=== PATIENT | female | born 1940 | race Asian ===

== ENCOUNTER 2019-03-30 04:49 | Inpatient (IN) | payer MEDICARE, OTHER, MEDICAID ==
[~2019-03-30] VITALS: Ht 165.1 cm; Wt 78.0 kg
[2019-03-30] MEDS ORDERED: METO25XL PO (05:05)
[2019-03-30] MEDS ORDERED: DABI75CA3 PO (05:05)
[2019-03-30] MEDS ORDERED: IPRA3AMP23 NEB (05:05)
[2019-03-30] MEDS ORDERED: LEVO100 PO (05:05)
[2019-03-30] MEDS ORDERED: ATOR10TA84 PO (05:05)
[2019-03-30] MEDS ORDERED: PROZ10 PO (05:05)
[2019-03-30] MEDS ORDERED: INSLAN SQ (05:05)
[2019-03-30 05:10] LABS: GLUCOSE,POINT OF CARE 420 MG/DL (70-110)
[2019-03-30] MEDS ORDERED: 0.9% SODIUM CHLORIDE 10 ML SYRINGE IVP PRN ×3 (05:15→12:00)
[2019-03-30] MEDS ORDERED: SODIUM CHLORIDE 0.9% 500 ML IV ONE (05:15)
[2019-03-30 05:40] LABS: APPEARANCE,URINE CLOUDY (CLEAR); BILIRUBIN,URINE NEGATIVE (NEGATIVE); GLUCOSE, URINE (UA) >=1000 mg/dL (NEGATIVE); KETONES,URINE NEGATIVE (NEGATIVE); LEUKOCYTE ESTERASE ,URINE SMALL (NEGATIVE); NITRATE,URINE NEGATIVE (NEGATIVE); OCCULT BLOOD,URINE TRACE (NEGATIVE); PH,URINE 5.5 (5.0-8.0); PROTEIN,URINE SEE CONFIRM (NEGATIVE); UROBILINOGEN,URINE 0.2 mg/dL (<=1.0)
[2019-03-30 05:41] LABS: BASOPHILS % (AUTO) 0.6 % (0.0-2.0); EOSINOPHILS % (AUTO) 0.2 % (1.0-6.0); HEMATOCRIT 38.5 % (36-46); HEMOGLOBIN 11.5 g/dL (12.0-16.0); LYMPHOCYTES # (AUTO) 1.2 K/uL (1.0-4.8); LYMPHOCYTES % (AUTO) 9.8 % (22.0-44.0); MEAN CORPUSCULAR VOLUME 73 fL (80-100); MONOCYTES # (AUTO) 0.6 K/uL (0.1-1.0); NEUTROPHILS # (AUTO) 10.4 K/uL (1.8-7.7); NEUTROPHILS % (AUTO) 84.4 % (40.0-70.0); PLATELET COUNT (AUTO) 199 K/uL (150-450); RED BLOOD CELL COUNT(AUTO) 5.24 MIL/uL (4.00-5.20); RED CELL DISTRIBUTION WIDTH 15.2 % (11.5-14.5)
[2019-03-30] MEDS ORDERED: PIPERACILLIN/TAZO 3.375 GM/D5W 50 ML IV ONE (05:45)
[2019-03-30] MEDS ORDERED: VANCOMYCIN HCL 1.5 GM in DEXTROSE 5%-WATER 250 ML IV ONE (05:45)
[2019-03-30 05:46] LABS: INR 1.3 (0.9-1.1); PROTHROMBIN TIME 13.7 SEC (9.4-11.6)
[2019-03-30 05:58] LABS: ANION GAP 7 mmol/L (8-16); CARBON DIOXIDE 28 mmol/L (22-29); CHLORIDE 103 mmol/L (98-107); POTASSIUM 3.8 mmol/L (3.5-5.1); SODIUM SERUM 138 mmol/L (136-145)
[2019-03-30 06:01] LABS: CREATININE 1.72 mg/dL (0.60-1.30); GLUCOSE,RANDOM 434 mg/dL (70-110); UREA NITROGEN, BLOOD 17 mg/dL (7-18)
[2019-03-30 06:02] LABS: ALANINE AMINOTRANSFERASE 8 U/L (12-78); ALBUMIN 2.6 g/dL (3.4-5.0); ALKALINE PHOSPHATASE 52 U/L (46-116); ASPARTATE AMINOTRANSFERASE 10 U/L (15-37); B-TYPE NATRIURETIC PEPTIDE 207 pg/mL (0-100); BILIRUBIN,TOTAL 0.4 mg/dL (0.1-1.0); CALCIUM, TOTAL 8.4 mg/dL (8.8-10.5); LACTIC ACID 3.2 mmol/L (0.4-2.0); TOTAL PROTEIN, SERUM 6.6 g/dL (6.4-8.2)
[2019-03-30 06:17] LABS: SULFOSALICYLIC ACID,URINE 2+ (Negative)
[2019-03-30 06:18] LABS: BACTERIA,URINE Many /HPF (None Seen); SQUAMOUS EPITHELIAL CELL,UR Few /LPF (None Seen)
[2019-03-30 06:23] LABS: PLATELET MORPHOLOGY COMMENT LARGE PLTS PRESENT
[2019-03-30] MEDS ORDERED: SODIUM CHLORIDE 0.9% 2,300 ML IV ONE (07:14)
[2019-03-30] MEDS ORDERED: ACETAMINOPHEN 325 MG TABLET PO PRN (07:15)
[2019-03-30] MEDS ORDERED: INSULIN REGULAR, HUMAN 100 UNITS/ML IVP ONE (07:30)
[2019-03-30 07:39] LABS: INFLUENZA TYPE A NEGATIVE FOR TYPE A (NEGATIVE); INFLUENZA TYPE B NEGATIVE FOR TYPE B (NEGATIVE)
[2019-03-30 10:26] VITALS: BP 117/64
[2019-03-30] MEDS ORDERED: SODIUM CHLORIDE 0.9% 250 ML IV ONE (10:33)
[2019-03-30] MEDS: CefTRIAXone SODIUM 2 GM in DEXTROSE 5%-WATER 50 ML IV SCH (11:23)
[2019-03-30] MEDS ORDERED: GLUCAGON,HUMAN RECOMBINANT 1 MG VIAL IM PRN (11:45)
[2019-03-30] MEDS ORDERED: INSULIN LISPRO 100 UNITS/ML SQ PRN (11:45)
[2019-03-30] MEDS ORDERED: DEXTROSE 50%-WATER 25 GM/50 ML SYRINGE IVP PRN (12:00)
[2019-03-30] MEDS ORDERED: IPRATROPIUM BROMIDE 0.5 MG/2.5 ML NEB SOLUTION NEB PRN (12:00)
[2019-03-30] MEDS ORDERED: ALBUTEROL SULFATE 2.5 MG/0.5 ML NEB SOLUTION NEB PRN (12:00)
[2019-03-30] MEDS ORDERED: DABIGATRAN ETEXILATE MESYLATE 75 MG CAPSULE PO SCH (12:00)
[2019-03-30] MEDS ORDERED: ONDANSETRON HCL 4 MG/2 ML VIAL IVP PRN (12:00)
[2019-03-30] MEDS ORDERED: DABI150 PO (12:00)
[2019-03-30] MEDS ORDERED: CefTRIAXone 1 GM/DEXTROSE 50 ML IV SCH (12:00)
[2019-03-30] MEDS ORDERED: MORPHINE SULFATE 2 MG/ML SYRINGE IVP PRN (12:00)
[2019-03-30] MEDS: DOXYCYCLINE HYCLATE 100 MG in DEXTROSE 5%-WATER 100 ML IV SCH (12:26)
[2019-03-30] MEDS: INSULIN LISPRO 100 UNITS/ML SQ PRN ×3 (12:32→21:45)
[2019-03-30 12:39] LABS: HEMOGLOBIN A1C 10.1 % (4.5-6.2)
[2019-03-30 12:42] LABS: CHOL/HDL RATIO 4.4 (3.9-5.7); THYROID STIMULATING HORMONE 8.25 uIU/mL (0.36-3.74)
[2019-03-30] MEDS: MetroNIDAZOLE 500 MG/NACL 100 ML IV SCH ×2 (15:12→22:23)
[2019-03-30] MEDS: DABIGATRAN ETEXILATE MESYLATE 150 MG CAPSULE PO SCH ×2 (15:12→21:26)
[2019-03-30] MEDS: FLUoxetine HCL 10 MG CAPSULE PO SCH (15:12)
[2019-03-30] MEDS: METOPROLOL SUCCINATE 25 MG ER TABLET PO SCH (15:13)
[2019-03-30] MEDS: LEVOTHYROXINE SODIUM 100 MCG TABLET PO SCH (15:13)
[2019-03-30] MEDS: PANTOPRAZOLE SODIUM 40 MG DR TABLET PO SCH (15:13)
[2019-03-30 15:14] VITALS: BP 118/40
[2019-03-30 16:05] LABS: GLUCOMETER DEV NAME(LOC) 5S.1; GLUCOSE,POINT OF CARE 327 MG/DL (70-110)
[2019-03-30] MEDS ORDERED: SODIUM CHLORIDE 3% 15 ML NEB SOLUTION NEB ONE (16:52)
[2019-03-30] MEDS ORDERED: GuaiFENesin/D-METHORPHAN [SUGAR-FREE] 200-20MG/10 ML SYRUP UDCUP PO PRN (18:30)
[2019-03-30 20:03] VITALS: BP 131/72
[2019-03-30 20:06] LABS: GLUCOMETER DEV NAME(LOC) 5S.1; GLUCOSE,POINT OF CARE 251 MG/DL (70-110)
[2019-03-30] MEDS ORDERED: INSULIN GLARGINE,HUM.REC.ANLOG 100 UNITS/ML SQ SCH (21:00)
[2019-03-30] MEDS: ATORVASTATIN CALCIUM 20 MG TABLET PO SCH (21:26)
[2019-03-31] MEDS: DOXYCYCLINE HYCLATE 100 MG in DEXTROSE 5%-WATER 100 ML IV SCH ×2 (00:04→11:50)
[2019-03-31 00:19] VITALS: BP 146/84
[2019-03-31 04:22] VITALS: BP 140/64
[2019-03-31] MEDS: MetroNIDAZOLE 500 MG/NACL 100 ML IV SCH ×3 (05:51→21:53)
[2019-03-31] MEDS: PANTOPRAZOLE SODIUM 40 MG DR TABLET PO SCH (05:52)
[2019-03-31] MEDS: LEVOTHYROXINE SODIUM 100 MCG TABLET PO SCH (05:52)
[2019-03-31 06:06] LABS: BASOPHILS % (AUTO) 0.6 % (0.0-2.0); EOSINOPHILS % (AUTO) 1.4 % (1.0-6.0); HEMATOCRIT 37.4 % (36-46); HEMOGLOBIN 11.6 g/dL (12.0-16.0); LYMPHOCYTES # (AUTO) 1.6 K/uL (1.0-4.8); LYMPHOCYTES % (AUTO) 15.4 % (22.0-44.0); MEAN CORPUSCULAR HEMOGLOBIN 22.9 pg (26.0-34.0); MEAN CORPUSCULAR VOLUME 74 fL (80-100); MONOCYTES # (AUTO) 0.5 K/uL (0.1-1.0); MONOCYTES % (AUTO) 4.8 % (2.0-9.0); NEUTROPHILS # (AUTO) 8.1 K/uL (1.8-7.7); NEUTROPHILS % (AUTO) 77.8 % (40.0-70.0); PLATELET COUNT (AUTO) 175 K/uL (150-450); RED BLOOD CELL COUNT(AUTO) 5.08 MIL/uL (4.00-5.20); RED CELL DISTRIBUTION WIDTH 15.5 % (11.5-14.5)
[2019-03-31 06:23] LABS: CALCIUM, TOTAL 8.3 mg/dL (8.8-10.5); CHOL/HDL RATIO 3.8 (3.9-5.7); CREATININE 1.01 mg/dL (0.60-1.30); POTASSIUM 3.7 mmol/L (3.5-5.1); THYROID STIMULATING HORMONE 11.4 uIU/mL (0.36-3.74)
[2019-03-31 06:26] LABS: HEMOGLOBIN A1C 10.5 % (4.5-6.2)
[2019-03-31] MEDS: INSULIN LISPRO 100 UNITS/ML SQ PRN ×3 (06:33→17:46)
[2019-03-31 08:15] VITALS: BP 145/65
[2019-03-31] MEDS: DABIGATRAN ETEXILATE MESYLATE 150 MG CAPSULE PO SCH ×2 (08:57→21:53)
[2019-03-31] MEDS: METOPROLOL SUCCINATE 25 MG ER TABLET PO SCH (08:57)
[2019-03-31] MEDS: FLUoxetine HCL 10 MG CAPSULE PO SCH (08:57)
[2019-03-31] MEDS: CefTRIAXone SODIUM 2 GM in DEXTROSE 5%-WATER 50 ML IV SCH (09:04)
[2019-03-31 11:57] VITALS: BP 142/64
[2019-03-31 16:08] VITALS: BP 124/70
[2019-03-31] MEDS ORDERED: SODIUM CHLORIDE 3% 15 ML NEB SOLUTION NEB ONE (17:23)
[2019-03-31 19:21] LABS: GLUCOMETER DEV NAME(LOC) 5S.1; GLUCOSE,POINT OF CARE 203 MG/DL (70-110)
[2019-03-31 19:21] LABS: GLUCOMETER DEV NAME(LOC) 5S.1; GLUCOSE,POINT OF CARE 155 MG/DL (70-110)
[2019-03-31 19:21] LABS: GLUCOMETER DEV NAME(LOC) 5S.1; GLUCOSE,POINT OF CARE 197 MG/DL (70-110)
[2019-03-31 19:21] LABS: GLUCOMETER DEV NAME(LOC) 5S.1; GLUCOSE,POINT OF CARE 151 MG/DL (70-110)
[2019-03-31 20:22] VITALS: BP 107/79
[2019-03-31] MEDS: INSULIN GLARGINE,HUM.REC.ANLOG 100 UNITS/ML SQ SCH (21:00)
[2019-03-31] MEDS: ATORVASTATIN CALCIUM 20 MG TABLET PO SCH (21:53)
[2019-03-31 22:50] LABS: GLUCOMETER DEV NAME(LOC) 5S.1; GLUCOSE,POINT OF CARE 109 MG/DL (70-110)
[2019-04-01] MEDS: DOXYCYCLINE HYCLATE 100 MG in DEXTROSE 5%-WATER 100 ML IV SCH ×2 (00:52→11:00)
[2019-04-01 01:05] VITALS: BP 128/60
[2019-04-01 05:10] VITALS: BP 124/70
[2019-04-01] MEDS: MetroNIDAZOLE 500 MG/NACL 100 ML IV SCH ×2 (05:46→14:13)
[2019-04-01] MEDS: PANTOPRAZOLE SODIUM 40 MG DR TABLET PO SCH (06:33)
[2019-04-01] MEDS: LEVOTHYROXINE SODIUM 100 MCG TABLET PO SCH (06:33)
[2019-04-01] MEDS: INSULIN LISPRO 100 UNITS/ML SQ PRN ×4 (06:39→21:14)
[2019-04-01 07:11] LABS: GLUCOMETER DEV NAME(LOC) 5S.1; GLUCOSE,POINT OF CARE 193 MG/DL (70-110)
[2019-04-01 07:13] LABS: ALBUMIN 2.4 g/dL (3.4-5.0); BILIRUBIN,TOTAL 0.6 mg/dL (0.1-1.0); CALCIUM, TOTAL 8.6 mg/dL (8.8-10.5); CREATININE 1.13 mg/dL (0.60-1.30); POTASSIUM 3.5 mmol/L (3.5-5.1); TOTAL PROTEIN, SERUM 6.8 g/dL (6.4-8.2)
[2019-04-01 07:59] VITALS: BP 147/65
[2019-04-01] MEDS: METOPROLOL SUCCINATE 25 MG ER TABLET PO SCH (08:16)
[2019-04-01] MEDS: DABIGATRAN ETEXILATE MESYLATE 150 MG CAPSULE PO SCH ×2 (08:16→21:08)
[2019-04-01] MEDS: FLUoxetine HCL 10 MG CAPSULE PO SCH (08:16)
[2019-04-01] MEDS: CefTRIAXone SODIUM 2 GM in DEXTROSE 5%-WATER 50 ML IV SCH (08:18)
[2019-04-01 11:06] VITALS: BP 141/65
[2019-04-01 16:21] VITALS: BP 142/70
[2019-04-01 17:25] LABS: GLUCOMETER DEV NAME(LOC) 5S.1; GLUCOSE,POINT OF CARE 197 MG/DL (70-110)
[2019-04-01 17:26] LABS: GLUCOMETER DEV NAME(LOC) 5S.1; GLUCOSE,POINT OF CARE 188 MG/DL (70-110)
[2019-04-01 20:35] VITALS: BP 120/69
[2019-04-01 20:40] LABS: GLUCOMETER DEV NAME(LOC) 5S.1; GLUCOSE,POINT OF CARE 173 MG/DL (70-110)
[2019-04-01] MEDS: MetroNIDAZOLE 500 MG TABLET PO SCH (21:07)
[2019-04-01] MEDS: ATORVASTATIN CALCIUM 20 MG TABLET PO SCH (21:07)
[2019-04-01] MEDS: DOXYCYCLINE HYCLATE 100 MG CAPSULE PO SCH (21:07)
[2019-04-01] MEDS: INSULIN GLARGINE,HUM.REC.ANLOG 100 UNITS/ML SQ SCH (21:13)
[2019-04-02] VITALS (7 sets, daily range): BP systolic 134–152; BP diastolic 61–96
[2019-04-02] MEDS: PANTOPRAZOLE SODIUM 40 MG DR TABLET PO SCH ×2 (05:36→06:30)
[2019-04-02] MEDS: LEVOTHYROXINE SODIUM 100 MCG TABLET PO SCH ×2 (05:36→06:30)
[2019-04-02] MEDS: INSULIN LISPRO 100 UNITS/ML SQ PRN ×4 (05:50→21:56)
[2019-04-02 06:40] LABS: ALBUMIN 2.3 g/dL (3.4-5.0); BILIRUBIN,TOTAL 0.4 mg/dL (0.1-1.0); CALCIUM, TOTAL 8.4 mg/dL (8.8-10.5); CREATININE 1.09 mg/dL (0.60-1.30); POTASSIUM 3.5 mmol/L (3.5-5.1); TOTAL PROTEIN, SERUM 7.1 g/dL (6.4-8.2)
[2019-04-02] MEDS: FLUoxetine HCL 10 MG CAPSULE PO SCH (08:23)
[2019-04-02] MEDS: METOPROLOL SUCCINATE 25 MG ER TABLET PO SCH (08:23)
[2019-04-02] MEDS: DOXYCYCLINE HYCLATE 100 MG CAPSULE PO SCH ×2 (08:23→21:30)
[2019-04-02] MEDS: MetroNIDAZOLE 500 MG TABLET PO SCH ×3 (08:23→21:30)
[2019-04-02] MEDS: DABIGATRAN ETEXILATE MESYLATE 150 MG CAPSULE PO SCH ×2 (08:24→21:30)
[2019-04-02] MEDS ORDERED: SODIUM CHLORIDE 0.9% 250 ML IV ONE (10:29)
[2019-04-02 10:58] LABS: LEGIONELLA PNEUMO AG URINE Negative (Negative); ORGANISM ID Not indicated.; S PNEUMO SOURCE Urine; STREP PNEUMONIAE AG URINE Negative (Negative); STREP.PNEUMO BODY FLUID CULT. Not Indicated
[2019-04-02] MEDS: CefTRIAXone SODIUM 2 GM in DEXTROSE 5%-WATER 50 ML IV SCH (11:03)
[2019-04-02] MEDS: ATORVASTATIN CALCIUM 20 MG TABLET PO SCH (21:30)
[2019-04-02] MEDS: INSULIN GLARGINE,HUM.REC.ANLOG 100 UNITS/ML SQ SCH (21:55)
[2019-04-03 04:05] VITALS: BP 152/80
[2019-04-03] MEDS: PANTOPRAZOLE SODIUM 40 MG DR TABLET PO SCH ×3 (05:55→08:41)
[2019-04-03] MEDS: LEVOTHYROXINE SODIUM 100 MCG TABLET PO SCH ×2 (05:56→06:30)
[2019-04-03] MEDS: INSULIN LISPRO 100 UNITS/ML SQ PRN ×3 (05:58→21:47)
[2019-04-03 06:55] LABS: ALBUMIN 2.3 g/dL (3.4-5.0); BILIRUBIN,TOTAL 0.4 mg/dL (0.1-1.0); CALCIUM, TOTAL 8.4 mg/dL (8.8-10.5); CREATININE 1.13 mg/dL (0.60-1.30); TOTAL PROTEIN, SERUM 6.6 g/dL (6.4-8.2)
[2019-04-03 07:32] LABS: GLUCOMETER DEV NAME(LOC) 5N.1; GLUCOSE,POINT OF CARE 146 MG/DL (70-110)
[2019-04-03 07:32] LABS: GLUCOMETER DEV NAME(LOC) 5S.1; GLUCOSE,POINT OF CARE 163 MG/DL (70-110)
[2019-04-03 07:32] LABS: GLUCOMETER DEV NAME(LOC) 5S.1; GLUCOSE,POINT OF CARE 233 MG/DL (70-110)
[2019-04-03 07:32] LABS: GLUCOMETER DEV NAME(LOC) 5S.1; GLUCOSE,POINT OF CARE 192 MG/DL (70-110)
[2019-04-03 07:32] LABS: GLUCOMETER DEV NAME(LOC) 5N.1; GLUCOSE,POINT OF CARE 159 MG/DL (70-110)
[2019-04-03 08:00] VITALS: BP 144/75
[2019-04-03] MEDS: DABIGATRAN ETEXILATE MESYLATE 150 MG CAPSULE PO SCH ×2 (08:41→21:39)
[2019-04-03] MEDS: MetroNIDAZOLE 500 MG TABLET PO SCH ×3 (08:42→21:39)
[2019-04-03] MEDS: METOPROLOL SUCCINATE 25 MG ER TABLET PO SCH (08:42)
[2019-04-03] MEDS: DOXYCYCLINE HYCLATE 100 MG CAPSULE PO SCH ×2 (08:42→21:39)
[2019-04-03] MEDS: FLUoxetine HCL 10 MG CAPSULE PO SCH (08:45)
[2019-04-03] MEDS: CefTRIAXone SODIUM 2 GM in DEXTROSE 5%-WATER 50 ML IV SCH (09:57)
[2019-04-03 11:40] VITALS: BP 136/58
[2019-04-03] MEDS ORDERED: POTASSIUM CHLORIDE 20 MEQ ER TABLET PO PRN (12:00)
[2019-04-03] MEDS: POTASSIUM CHL 10 MEQ/WATER 50 ML IV PRN ×4 (13:40→21:40)
[2019-04-03] MEDS ORDERED: SODIUM CHLORIDE 0.9% 250 ML IV ONE (13:42)
[2019-04-03 15:19] LABS: QUANTIFERON+, Nil Value 0.02 IU/mL; QUANTIFERON+,Mitogen Value 0.22 IU/mL; QUANTIFERON+,TB1 Antigen Value 0.05 IU/mL; QUANTIFERON, TB GOLD PLUS Indeterminate (Negative)
[2019-04-03 16:00] VITALS: BP 118/79
[2019-04-03 19:38] VITALS: BP 152/62
[2019-04-03] MEDS: ATORVASTATIN CALCIUM 20 MG TABLET PO SCH (21:39)
[2019-04-03] MEDS: INSULIN GLARGINE,HUM.REC.ANLOG 100 UNITS/ML SQ SCH (21:47)
[2019-04-03 23:40] VITALS: BP 148/87
[2019-04-04] MEDS ORDERED: SODIUM CHLORIDE 0.9% 500 ML IV ONE (01:54)
[2019-04-04] MEDS: POTASSIUM CHL 10 MEQ/WATER 50 ML IV PRN ×3 (01:57→04:25)
[2019-04-04 04:18] VITALS: BP 149/88
[2019-04-04 04:31] LABS: GLUCOMETER DEV NAME(LOC) 5S.1; GLUCOSE,POINT OF CARE 206 MG/DL (70-110)
[2019-04-04 04:31] LABS: GLUCOMETER DEV NAME(LOC) 5S.1; GLUCOSE,POINT OF CARE 116 MG/DL (70-110)
[2019-04-04] MEDS: PANTOPRAZOLE SODIUM 40 MG DR TABLET PO SCH (06:18)
[2019-04-04] MEDS: LEVOTHYROXINE SODIUM 100 MCG TABLET PO SCH (06:18)
[2019-04-04 06:33] LABS: BASOPHILS % (AUTO) 0.4 % (0.0-2.0); EOSINOPHILS % (AUTO) 2.8 % (1.0-6.0); HEMATOCRIT 38.1 % (36-46); HEMOGLOBIN 12.3 g/dL (12.0-16.0); LYMPHOCYTES # (AUTO) 1.2 K/uL (1.0-4.8); LYMPHOCYTES % (AUTO) 13.2 % (22.0-44.0); MEAN CORPUSCULAR HEMOGLOBIN 23.1 pg (26.0-34.0); MEAN CORPUSCULAR HGB CONC 32.4 G/dL (31.0-37.0); MEAN CORPUSCULAR VOLUME 71 fL (80-100); MONOCYTES # (AUTO) 0.4 K/uL (0.1-1.0); MONOCYTES % (AUTO) 5.1 % (2.0-9.0); NEUTROPHILS # (AUTO) 6.9 K/uL (1.8-7.7); NEUTROPHILS % (AUTO) 78.5 % (40.0-70.0); PLATELET COUNT (AUTO) 273 K/uL (150-450); RED BLOOD CELL COUNT(AUTO) 5.33 MIL/uL (4.00-5.20); RED CELL DISTRIBUTION WIDTH 15.1 % (11.5-14.5)
[2019-04-04 07:21] LABS: CALCIUM, TOTAL 8.4 mg/dL (8.8-10.5); CREATININE 1.09 mg/dL (0.60-1.30); MAGNESIUM 1.3 mg/dL (1.80-2.40)
[2019-04-04 07:34] VITALS: BP 145/70
[2019-04-04] MEDS: METOPROLOL SUCCINATE 25 MG ER TABLET PO SCH (08:05)
[2019-04-04] MEDS: MetroNIDAZOLE 500 MG TABLET PO SCH ×3 (08:05→20:46)
[2019-04-04] MEDS: DOXYCYCLINE HYCLATE 100 MG CAPSULE PO SCH ×2 (08:05→20:52)
[2019-04-04] MEDS: DABIGATRAN ETEXILATE MESYLATE 150 MG CAPSULE PO SCH ×2 (08:05→20:52)
[2019-04-04] MEDS: FLUoxetine HCL 10 MG CAPSULE PO SCH (08:05)
[2019-04-04] MEDS: CefTRIAXone SODIUM 2 GM in DEXTROSE 5%-WATER 50 ML IV SCH (10:19)
[2019-04-04 11:13] VITALS: BP 130/66
[2019-04-04 11:46] LABS: GLUCOMETER DEV NAME(LOC) 5N.1; GLUCOSE,POINT OF CARE 174 MG/DL (70-110)
[2019-04-04 11:47] LABS: GLUCOMETER DEV NAME(LOC) 5N.1; GLUCOSE,POINT OF CARE 130 MG/DL (70-110)
[2019-04-04] MEDS ORDERED: MAGNESIUM SULFATE 2 GM/WATER 50 ML IV ONE (12:15)
[2019-04-04] MEDS: INSULIN LISPRO 100 UNITS/ML SQ PRN ×3 (12:49→21:33)
[2019-04-04 15:24] VITALS: BP 141/72
[2019-04-04] MEDS ORDERED: PANT40TA25 PO (16:14)
[2019-04-04] MEDS ORDERED: AUD NEB (16:16)
[2019-04-04] MEDS ORDERED: GUAIFDM PO (16:16)
[2019-04-04] MEDS ORDERED: INSU100V SQ (16:18)
[2019-04-04] MEDS ORDERED: ONDA-104 PO (16:19)
[2019-04-04] MEDS ORDERED: IPRNEB IH (16:19)
[2019-04-04 18:06] LABS: GLUCOMETER DEV NAME(LOC) 5S.1; GLUCOSE,POINT OF CARE 167 MG/DL (70-110)
[2019-04-04 20:27] VITALS: BP 145/69
[2019-04-04] MEDS: ATORVASTATIN CALCIUM 20 MG TABLET PO SCH (20:45)
[2019-04-04] MEDS: INSULIN GLARGINE,HUM.REC.ANLOG 100 UNITS/ML SQ SCH (21:32)
[2019-04-05 00:49] VITALS: BP 162/92
[2019-04-05 04:24] VITALS: BP 140/85
[2019-04-05] MEDS: LEVOTHYROXINE SODIUM 137 MCG TABLET PO SCH (06:24)
[2019-04-05] MEDS: PANTOPRAZOLE SODIUM 40 MG DR TABLET PO SCH (07:13)
[2019-04-05 07:21] VITALS: BP 117/71
[2019-04-05 07:26] LABS: BASOPHILS % (AUTO) 0.5 % (0.0-2.0); EOSINOPHILS % (AUTO) 1.8 % (1.0-6.0); HEMATOCRIT 40.4 % (36-46); HEMOGLOBIN 12.9 g/dL (12.0-16.0); LYMPHOCYTES # (AUTO) 1.2 K/uL (1.0-4.8); LYMPHOCYTES % (AUTO) 11.4 % (22.0-44.0); MEAN CORPUSCULAR HEMOGLOBIN 22.7 pg (26.0-34.0); MEAN CORPUSCULAR HGB CONC 31.9 G/dL (31.0-37.0); MEAN CORPUSCULAR VOLUME 71 fL (80-100); MONOCYTES # (AUTO) 0.5 K/uL (0.1-1.0); MONOCYTES % (AUTO) 5.1 % (2.0-9.0); NEUTROPHILS # (AUTO) 8.5 K/uL (1.8-7.7); NEUTROPHILS % (AUTO) 81.2 % (40.0-70.0); PLATELET COUNT (AUTO) 271 K/uL (150-450); RED BLOOD CELL COUNT(AUTO) 5.66 MIL/uL (4.00-5.20); RED CELL DISTRIBUTION WIDTH 14.9 % (11.5-14.5)
[2019-04-05 07:36] LABS: ALBUMIN 2.5 g/dL (3.4-5.0); BILIRUBIN,TOTAL 0.3 mg/dL (0.1-1.0); CALCIUM, TOTAL 9.1 mg/dL (8.8-10.5); CREATININE 1.07 mg/dL (0.60-1.30); POTASSIUM 3.6 mmol/L (3.5-5.1); TOTAL PROTEIN, SERUM 7.3 g/dL (6.4-8.2)
[2019-04-05 08:06] LABS: HIV 1-2 SCREEN 4TH GEN W/RFLX Non Reactive (Non Reactive)
[2019-04-05 08:32] LABS: GLUCOMETER DEV NAME(LOC) 5S.2A; GLUCOSE,POINT OF CARE 136 MG/DL (70-110)
[2019-04-05] MEDS: CefTRIAXone SODIUM 2 GM in DEXTROSE 5%-WATER 50 ML IV SCH (09:02)
[2019-04-05] MEDS: DOXYCYCLINE HYCLATE 100 MG CAPSULE PO SCH ×2 (09:02→21:27)
[2019-04-05] MEDS: MetroNIDAZOLE 500 MG TABLET PO SCH ×3 (09:02→21:26)
[2019-04-05] MEDS: FLUoxetine HCL 10 MG CAPSULE PO SCH (09:02)
[2019-04-05] MEDS ORDERED: APIXABAN 5 MG TABLET PO SCH (10:15)
[2019-04-05 10:57] VITALS: BP 103/83
[2019-04-05] MEDS: INSULIN LISPRO 100 UNITS/ML SQ PRN ×3 (13:44→21:42)
[2019-04-05 15:30] VITALS: BP 141/85
[2019-04-05 16:56] LABS: GLUCOMETER DEV NAME(LOC) 5N.1; GLUCOSE,POINT OF CARE 93 MG/DL (70-110)
[2019-04-05 16:56] LABS: GLUCOMETER DEV NAME(LOC) 5N.1; GLUCOSE,POINT OF CARE 184 MG/DL (70-110)
[2019-04-05] MEDS: ETHAMBUTOL HCL 400 MG TABLET PO SCH (18:10)
[2019-04-05 19:46] LABS: GLUCOMETER DEV NAME(LOC) 5N.1; GLUCOSE,POINT OF CARE 201 MG/DL (70-110)
[2019-04-05 19:50] VITALS: BP 158/67
[2019-04-05] MEDS: PYRIDOXINE HCL 50 MG TABLET PO SCH (21:27)
[2019-04-05] MEDS: RIFABUTIN 150 MG CAPSULE PO SCH (21:27)
[2019-04-05] MEDS: ISONIAZID 300 MG TABLET PO SCH (21:27)
[2019-04-05] MEDS: ATORVASTATIN CALCIUM 20 MG TABLET PO SCH (21:27)
[2019-04-05] MEDS: APIXABAN 5 MG TABLET PO SCH (21:27)
[2019-04-05] MEDS: INSULIN GLARGINE,HUM.REC.ANLOG 100 UNITS/ML SQ SCH (21:42)
[2019-04-05 23:56] LABS: GLUCOMETER DEV NAME(LOC) 5N.1; GLUCOSE,POINT OF CARE 197 MG/DL (70-110)
[2019-04-06 00:09] VITALS: BP 137/83
[2019-04-06 05:23] VITALS: BP 124/79
[2019-04-06] MEDS: LEVOTHYROXINE SODIUM 137 MCG TABLET PO SCH (06:18)
[2019-04-06] MEDS: PANTOPRAZOLE SODIUM 40 MG DR TABLET PO SCH (06:19)
[2019-04-06 06:46] LABS: GLUCOMETER DEV NAME(LOC) 5N.2; GLUCOSE,POINT OF CARE 94 MG/DL (70-110)
[2019-04-06 07:14] LABS: BASOPHILS % (AUTO) 0.3 % (0.0-2.0); EOSINOPHILS % (AUTO) 3.1 % (1.0-6.0); HEMATOCRIT 39.4 % (36-46); HEMOGLOBIN 12.5 g/dL (12.0-16.0); LYMPHOCYTES # (AUTO) 1.1 K/uL (1.0-4.8); LYMPHOCYTES % (AUTO) 13.9 % (22.0-44.0); MEAN CORPUSCULAR HEMOGLOBIN 22.7 pg (26.0-34.0); MEAN CORPUSCULAR HGB CONC 31.8 G/dL (31.0-37.0); MEAN CORPUSCULAR VOLUME 71 fL (80-100); MONOCYTES # (AUTO) 0.5 K/uL (0.1-1.0); NEUTROPHILS # (AUTO) 6.2 K/uL (1.8-7.7); NEUTROPHILS % (AUTO) 76.7 % (40.0-70.0); PLATELET COUNT (AUTO) 290 K/uL (150-450); RED BLOOD CELL COUNT(AUTO) 5.52 MIL/uL (4.00-5.20); RED CELL DISTRIBUTION WIDTH 14.9 % (11.5-14.5)
[2019-04-06 07:26] LABS: ALBUMIN 2.4 g/dL (3.4-5.0); BILIRUBIN,TOTAL 0.3 mg/dL (0.1-1.0); CALCIUM, TOTAL 8.6 mg/dL (8.8-10.5); CREATININE 1.07 mg/dL (0.60-1.30); MAGNESIUM 1.8 mg/dL (1.80-2.40); POTASSIUM 3.5 mmol/L (3.5-5.1)
[2019-04-06 07:51] VITALS: BP 132/51
[2019-04-06] MEDS: APIXABAN 5 MG TABLET PO SCH ×2 (08:22→20:17)
[2019-04-06] MEDS: FLUoxetine HCL 10 MG CAPSULE PO SCH (08:22)
[2019-04-06] MEDS: DOXYCYCLINE HYCLATE 100 MG CAPSULE PO SCH ×2 (08:22→20:17)
[2019-04-06] MEDS: ISONIAZID 300 MG TABLET PO SCH (08:22)
[2019-04-06] MEDS: PYRIDOXINE HCL 50 MG TABLET PO SCH (08:22)
[2019-04-06] MEDS: MetroNIDAZOLE 500 MG TABLET PO SCH ×3 (08:22→20:17)
[2019-04-06] MEDS: ETHAMBUTOL HCL 400 MG TABLET PO SCH (08:23)
[2019-04-06] MEDS: RIFABUTIN 150 MG CAPSULE PO SCH (08:23)
[2019-04-06] MEDS: CefTRIAXone SODIUM 2 GM in DEXTROSE 5%-WATER 50 ML IV SCH (09:09)
[2019-04-06 11:32] VITALS: BP 146/71
[2019-04-06] MEDS: INSULIN LISPRO 100 UNITS/ML SQ PRN ×3 (11:39→20:19)
[2019-04-06 13:01] LABS: GLUCOMETER DEV NAME(LOC) 5N.1; GLUCOSE,POINT OF CARE 164 MG/DL (70-110)
[2019-04-06 15:35] VITALS: BP 132/68
[2019-04-06] MEDS: ATORVASTATIN CALCIUM 20 MG TABLET PO SCH (20:17)
[2019-04-06] MEDS: INSULIN GLARGINE,HUM.REC.ANLOG 100 UNITS/ML SQ SCH (20:20)
[2019-04-06 20:33] VITALS: BP 107/55
[2019-04-07 00:24] VITALS: BP 138/74
[2019-04-07 05:33] VITALS: BP 140/68
[2019-04-07] MEDS: PANTOPRAZOLE SODIUM 40 MG DR TABLET PO SCH ×2 (06:28→06:30)
[2019-04-07] MEDS: LEVOTHYROXINE SODIUM 137 MCG TABLET PO SCH (06:28)
[2019-04-07 07:21] LABS: GLUCOMETER DEV NAME(LOC) 5N.1; GLUCOSE,POINT OF CARE 143 MG/DL (70-110)
[2019-04-07 07:24] LABS: EOSINOPHILS % (AUTO) 3.1 % (1.0-6.0); HEMATOCRIT 41.6 % (36-46); HEMOGLOBIN 12.9 g/dL (12.0-16.0); LYMPHOCYTES # (AUTO) 1.6 K/uL (1.0-4.8); LYMPHOCYTES % (AUTO) 19.7 % (22.0-44.0); MEAN CORPUSCULAR HEMOGLOBIN 22.4 pg (26.0-34.0); MEAN CORPUSCULAR HGB CONC 31.1 G/dL (31.0-37.0); MEAN CORPUSCULAR VOLUME 72 fL (80-100); MONOCYTES # (AUTO) 0.7 K/uL (0.1-1.0); MONOCYTES % (AUTO) 9.4 % (2.0-9.0); NEUTROPHILS # (AUTO) 5.3 K/uL (1.8-7.7); NEUTROPHILS % (AUTO) 66.8 % (40.0-70.0); PLATELET COUNT (AUTO) 322 K/uL (150-450); RED BLOOD CELL COUNT(AUTO) 5.76 MIL/uL (4.00-5.20); RED CELL DISTRIBUTION WIDTH 15.3 % (11.5-14.5)
[2019-04-07 07:43] VITALS: BP 138/79
[2019-04-07 07:53] LABS: ALBUMIN 2.6 g/dL (3.4-5.0); BILIRUBIN,TOTAL 0.3 mg/dL (0.1-1.0); CALCIUM, TOTAL 9.1 mg/dL (8.8-10.5); CREATININE 1.12 mg/dL (0.60-1.30); MAGNESIUM 1.9 mg/dL (1.80-2.40); POTASSIUM 4.3 mmol/L (3.5-5.1); TOTAL PROTEIN, SERUM 7.6 g/dL (6.4-8.2)
[2019-04-07] MEDS: FLUoxetine HCL 10 MG CAPSULE PO SCH (09:11)
[2019-04-07] MEDS: ETHAMBUTOL HCL 400 MG TABLET PO SCH (09:11)
[2019-04-07] MEDS: MetroNIDAZOLE 500 MG TABLET PO SCH ×3 (09:11→20:23)
[2019-04-07] MEDS: ISONIAZID 300 MG TABLET PO SCH (09:11)
[2019-04-07] MEDS: PYRIDOXINE HCL 50 MG TABLET PO SCH (09:11)
[2019-04-07] MEDS: DOXYCYCLINE HYCLATE 100 MG CAPSULE PO SCH ×2 (09:11→20:23)
[2019-04-07] MEDS: RIFABUTIN 150 MG CAPSULE PO SCH (09:11)
[2019-04-07 11:10] VITALS: BP 155/72
[2019-04-07] MEDS: CefTRIAXone SODIUM 2 GM in DEXTROSE 5%-WATER 50 ML IV SCH (11:15)
[2019-04-07 11:25] LABS: GLUCOMETER DEV NAME(LOC) 5N.2; GLUCOSE,POINT OF CARE 125 MG/DL (70-110)
[2019-04-07 11:26] LABS: GLUCOMETER DEV NAME(LOC) 5N.2; GLUCOSE,POINT OF CARE 93 MG/DL (70-110)
[2019-04-07] MEDS: INSULIN LISPRO 100 UNITS/ML SQ PRN ×3 (12:03→21:41)
[2019-04-07 15:33] VITALS: BP 152/76
[2019-04-07 20:02] LABS: GLUCOMETER DEV NAME(LOC) 5N.2; GLUCOSE,POINT OF CARE 176 MG/DL (70-110)
[2019-04-07 20:02] LABS: GLUCOMETER DEV NAME(LOC) 5N.2; GLUCOSE,POINT OF CARE 189 MG/DL (70-110)
[2019-04-07 20:10] VITALS: BP 146/82
[2019-04-07] MEDS: ATORVASTATIN CALCIUM 20 MG TABLET PO SCH (20:23)
[2019-04-07] MEDS: INSULIN GLARGINE,HUM.REC.ANLOG 100 UNITS/ML SQ SCH (21:41)
[2019-04-08 00:04] VITALS: BP 139/58
[2019-04-08 03:57] LABS: GLUCOMETER DEV NAME(LOC) 5N.2; GLUCOSE,POINT OF CARE 202 MG/DL (70-110)
[2019-04-08 04:21] VITALS: BP 112/55
[2019-04-08] MEDS: PANTOPRAZOLE SODIUM 40 MG DR TABLET PO SCH (05:49)
[2019-04-08] MEDS: LEVOTHYROXINE SODIUM 137 MCG TABLET PO SCH (05:49)
[2019-04-08 06:22] LABS: BASOPHILS % (AUTO) 0.7 % (0.0-2.0); EOSINOPHILS % (AUTO) 2.6 % (1.0-6.0); HEMATOCRIT 40.6 % (36-46); HEMOGLOBIN 12.7 g/dL (12.0-16.0); LYMPHOCYTES # (AUTO) 1.5 K/uL (1.0-4.8); LYMPHOCYTES % (AUTO) 17.4 % (22.0-44.0); MEAN CORPUSCULAR HEMOGLOBIN 22.6 pg (26.0-34.0); MEAN CORPUSCULAR HGB CONC 31.3 G/dL (31.0-37.0); MEAN CORPUSCULAR VOLUME 72 fL (80-100); MONOCYTES # (AUTO) 0.7 K/uL (0.1-1.0); MONOCYTES % (AUTO) 8.6 % (2.0-9.0); NEUTROPHILS # (AUTO) 6.1 K/uL (1.8-7.7); NEUTROPHILS % (AUTO) 70.7 % (40.0-70.0); PLATELET COUNT (AUTO) 335 K/uL (150-450); RED BLOOD CELL COUNT(AUTO) 5.62 MIL/uL (4.00-5.20); RED CELL DISTRIBUTION WIDTH 15.3 % (11.5-14.5)
[2019-04-08 06:41] LABS: ALBUMIN 2.8 g/dL (3.4-5.0); BILIRUBIN,TOTAL 0.3 mg/dL (0.1-1.0); CALCIUM, TOTAL 9.1 mg/dL (8.8-10.5); CREATININE 1.09 mg/dL (0.60-1.30); MAGNESIUM 1.8 mg/dL (1.80-2.40); POTASSIUM 4.2 mmol/L (3.5-5.1); TOTAL PROTEIN, SERUM 6.8 g/dL (6.4-8.2)
[2019-04-08 07:07] LABS: GLUCOMETER DEV NAME(LOC) 5N.1; GLUCOSE,POINT OF CARE 114 MG/DL (70-110)
[2019-04-08 08:39] VITALS: BP 135/64
[2019-04-08] MEDS: DOXYCYCLINE HYCLATE 100 MG CAPSULE PO SCH ×2 (09:45→21:16)
[2019-04-08] MEDS: ISONIAZID 300 MG TABLET PO SCH (09:45)
[2019-04-08] MEDS: FLUoxetine HCL 10 MG CAPSULE PO SCH (09:45)
[2019-04-08] MEDS: MetroNIDAZOLE 500 MG TABLET PO SCH ×3 (09:45→21:16)
[2019-04-08] MEDS: RIFABUTIN 150 MG CAPSULE PO SCH (09:45)
[2019-04-08] MEDS: PYRIDOXINE HCL 50 MG TABLET PO SCH (09:45)
[2019-04-08] MEDS: CefTRIAXone SODIUM 2 GM in DEXTROSE 5%-WATER 50 ML IV SCH (09:46)
[2019-04-08] MEDS: ETHAMBUTOL HCL 400 MG TABLET PO SCH (09:46)
[2019-04-08 11:28] VITALS: BP 129/67
[2019-04-08] MEDS: INSULIN LISPRO 100 UNITS/ML SQ PRN ×3 (12:03→21:55)
[2019-04-08 13:06] LABS: GLUCOMETER DEV NAME(LOC) 5N.2; GLUCOSE,POINT OF CARE 246 MG/DL (70-110)
[2019-04-08 13:21] LABS: GLUCOMETER DEV NAME(LOC) 5N.1; GLUCOSE,POINT OF CARE 131 MG/DL (70-110)
[2019-04-08 15:39] VITALS: BP 147/83
[2019-04-08 17:57] LABS: GLUCOMETER DEV NAME(LOC) 5N.2; GLUCOSE,POINT OF CARE 234 MG/DL (70-110)
[2019-04-08] MEDS: ACETAMINOPHEN 325 MG TABLET PO PRN (18:23)
[2019-04-08] MEDS ORDERED: LIDOCAINE 5% TRANSDERMAL PATCH TD ONE (18:45)
[2019-04-08 20:10] VITALS: BP 144/70
[2019-04-08] MEDS: APIXABAN 5 MG TABLET PO SCH (21:16)
[2019-04-08] MEDS: LIDOCAINE 5% TRANSDERMAL PATCH TD SCH (21:16)
[2019-04-08] MEDS: ATORVASTATIN CALCIUM 20 MG TABLET PO SCH (21:16)
[2019-04-08] MEDS: INSULIN GLARGINE,HUM.REC.ANLOG 100 UNITS/ML SQ SCH (21:55)
[2019-04-09 01:11] VITALS: BP 150/76
[2019-04-09 05:00] VITALS: BP 142/75
[2019-04-09] MEDS: LEVOTHYROXINE SODIUM 137 MCG TABLET PO SCH (06:06)
[2019-04-09] MEDS: PANTOPRAZOLE SODIUM 40 MG DR TABLET PO SCH (06:06)
[2019-04-09 07:53] VITALS: BP 139/75
[2019-04-09] MEDS: FLUoxetine HCL 10 MG CAPSULE PO SCH (08:33)
[2019-04-09] MEDS: ISONIAZID 300 MG TABLET PO SCH (08:33)
[2019-04-09] MEDS: APIXABAN 5 MG TABLET PO SCH (08:33)
[2019-04-09] MEDS: RIFABUTIN 150 MG CAPSULE PO SCH (08:33)
[2019-04-09] MEDS: PYRIDOXINE HCL 50 MG TABLET PO SCH (08:33)
[2019-04-09] MEDS: MetroNIDAZOLE 500 MG TABLET PO SCH ×3 (08:33→22:27)
[2019-04-09] MEDS: DOXYCYCLINE HYCLATE 100 MG CAPSULE PO SCH ×2 (08:33→22:27)
[2019-04-09] MEDS: ETHAMBUTOL HCL 400 MG TABLET PO SCH (08:34)
[2019-04-09] MEDS: ACETAMINOPHEN 325 MG TABLET PO PRN ×2 (08:34→18:01)
[2019-04-09] MEDS: -LIDODERM PATCH NOTE- MISC SCH (08:34)
[2019-04-09] MEDS: CefTRIAXone SODIUM 2 GM in DEXTROSE 5%-WATER 50 ML IV SCH (09:53)
[2019-04-09] MEDS: INSULIN LISPRO 100 UNITS/ML SQ PRN (11:22)
[2019-04-09 11:45] VITALS: BP 103/52
[2019-04-09 16:28] VITALS: BP 134/71
[2019-04-09 17:07] LABS: GLUCOMETER DEV NAME(LOC) 5N.1; GLUCOSE,POINT OF CARE 147 MG/DL (70-110)
[2019-04-09] MEDS ORDERED: HEPARIN SODIUM 25000 UNITS/D5W 250 ML IV PRN (19:36)
[2019-04-09] MEDS ORDERED: HEPARIN SODIUM,PORCINE 5,000 UNITS/ML VIAL IVP ONE (19:45)
[2019-04-09] MEDS ORDERED: HEPARIN SODIUM,PORCINE 5,000 UNITS/ML VIAL IVP PRN ×2 (19:45)
[2019-04-09 20:32] VITALS: BP 107/60
[2019-04-09 20:46] LABS: GLUCOMETER DEV NAME(LOC) 5N.2; GLUCOSE,POINT OF CARE 181 MG/DL (70-110)
[2019-04-09 20:46] LABS: GLUCOMETER DEV NAME(LOC) 5N.2; GLUCOSE,POINT OF CARE 119 MG/DL (70-110)
[2019-04-09 20:46] LABS: GLUCOMETER DEV NAME(LOC) 5N.2; GLUCOSE,POINT OF CARE 289 MG/DL (70-110)
[2019-04-09] MEDS: INSULIN GLARGINE,HUM.REC.ANLOG 100 UNITS/ML SQ SCH (21:00)
[2019-04-09 21:08] LABS: BASOPHILS % (AUTO) 0.7 % (0.0-2.0); EOSINOPHILS % (AUTO) 2.2 % (1.0-6.0); HEMATOCRIT 42.3 % (36-46); LYMPHOCYTES # (AUTO) 1.5 K/uL (1.0-4.8); LYMPHOCYTES % (AUTO) 24.9 % (22.0-44.0); MEAN CORPUSCULAR HEMOGLOBIN 22.3 pg (26.0-34.0); MEAN CORPUSCULAR HGB CONC 30.6 G/dL (31.0-37.0); MEAN CORPUSCULAR VOLUME 73 fL (80-100); MONOCYTES # (AUTO) 0.6 K/uL (0.1-1.0); MONOCYTES % (AUTO) 10.6 % (2.0-9.0); NEUTROPHILS # (AUTO) 3.7 K/uL (1.8-7.7); NEUTROPHILS % (AUTO) 61.6 % (40.0-70.0); PLATELET COUNT (AUTO) 287 K/uL (150-450); RED BLOOD CELL COUNT(AUTO) 5.83 MIL/uL (4.00-5.20); RED CELL DISTRIBUTION WIDTH 15.6 % (11.5-14.5)
[2019-04-09 21:19] LABS: INR 1.2 (0.9-1.1); PROTHROMBIN TIME 12.1 SEC (9.4-11.6)
[2019-04-09 21:31] LABS: PLATELET MORPHOLOGY COMMENT NORMAL
[2019-04-09] MEDS: METOPROLOL TARTRATE 25 MG TABLET PO SCH (22:27)
[2019-04-09] MEDS: ATORVASTATIN CALCIUM 20 MG TABLET PO SCH (22:27)
[2019-04-09] MEDS: LIDOCAINE 5% TRANSDERMAL PATCH TD SCH (22:29)
[2019-04-09 23:50] LABS: GLUCOMETER DEV NAME(LOC) 5N.1; GLUCOSE,POINT OF CARE 167 MG/DL (70-110)
[2019-04-10 00:19] VITALS: BP 112/61
[2019-04-10 04:15] VITALS: BP 148/71
[2019-04-10] MEDS: PANTOPRAZOLE SODIUM 40 MG DR TABLET PO SCH (06:35)
[2019-04-10] MEDS: LEVOTHYROXINE SODIUM 137 MCG TABLET PO SCH (06:35)
[2019-04-10 06:51] LABS: HEMATOCRIT 38.8 % (36-46); MEAN CORPUSCULAR HEMOGLOBIN 22.2 pg (26.0-34.0); MEAN CORPUSCULAR VOLUME 72 fL (80-100); PLATELET COUNT (AUTO) 302 K/uL (150-450); RED BLOOD CELL COUNT(AUTO) 5.41 MIL/uL (4.00-5.20); RED CELL DISTRIBUTION WIDTH 15.3 % (11.5-14.5)
[2019-04-10 07:46] LABS: BAND NEUTROPHILS % (MANUAL) 3 % (0-5); EOSINOPHILS % (MANUAL) 3 % (1-6); LYMPHOCYTES % (MANUAL) 27 % (22-44); MONOCYTES % (MANUAL) 8 % (2-9); SEGMENTED NEUTROPHILS % 59 % (40-70)
[2019-04-10 07:49] VITALS: BP 137/60
[2019-04-10] MEDS: ISONIAZID 300 MG TABLET PO SCH (08:24)
[2019-04-10] MEDS: DOXYCYCLINE HYCLATE 100 MG CAPSULE PO SCH (08:25)
[2019-04-10] MEDS: METOPROLOL TARTRATE 25 MG TABLET PO SCH (08:25)
[2019-04-10] MEDS: MetroNIDAZOLE 500 MG TABLET PO SCH ×2 (08:25→15:05)
[2019-04-10] MEDS: RIFABUTIN 150 MG CAPSULE PO SCH (08:25)
[2019-04-10] MEDS: ETHAMBUTOL HCL 400 MG TABLET PO SCH (08:25)
[2019-04-10] MEDS: PYRIDOXINE HCL 50 MG TABLET PO SCH (08:26)
[2019-04-10] MEDS: FLUoxetine HCL 10 MG CAPSULE PO SCH (08:26)
[2019-04-10] MEDS: -LIDODERM PATCH NOTE- MISC SCH (08:26)
[2019-04-10] MEDS ORDERED: SODIUM CHLORIDE 0.9% 500 ML IV ONE (11:33)
[2019-04-10 11:34] VITALS: BP 142/70
[2019-04-10] MEDS: CefTRIAXone SODIUM 2 GM in DEXTROSE 5%-WATER 50 ML IV SCH (11:35)
[2019-04-10 15:38] VITALS: BP 141/72
[2019-04-10 15:51] LABS: GLUCOMETER DEV NAME(LOC) 5N.1; GLUCOSE,POINT OF CARE 187 MG/DL (70-110)
[2019-04-10 21:56] LABS: GLUCOMETER DEV NAME(LOC) 5S.2A; GLUCOSE,POINT OF CARE 205 MG/DL (70-110)
[2019-04-11 02:05] LABS: GLUCOMETER DEV NAME(LOC) 5S.1; GLUCOSE,POINT OF CARE 170 MG/DL (70-110)
== END 2019-04-10 19:05 | disposition short-term general hospital (02) | DRG 871 ==
LOC: EMS 04:49 → 5N 09:17 → 5S 04-04 19:00 → 5N 04-05 16:45 → 5S 04-09 17:50
PROVIDERS: ADMIT Internal Medicine; ATTEND Internal Medicine Geriatric Medicine
DX: A41.9 Sepsis, unspecified organism (principal); J85.1 Abscess of lung with pneumonia; J96.91 Respiratory failure, unspecified with hypoxia; G93.41 Metabolic encephalopathy; E43 Unspecified severe protein-calorie malnutrition; I69.354 Hemiplegia and hemiparesis following cerebral infarction affecting left non-dominant side; N39.0 Urinary tract infection, site not specified; E87.2 Acidosis; G93.40 Encephalopathy, unspecified; I13.0 Hypertensive heart and chronic kidney disease with heart failure and stage 1 through stage 4 chronic kidney disease, or unspecified chronic kidney disease; E11.22 Type 2 diabetes mellitus with diabetic chronic kidney disease; N18.3 Chronic kidney disease, stage 3 (moderate); E03.9 Hypothyroidism, unspecified; E78.5 Hyperlipidemia, unspecified; I95.9 Hypotension, unspecified; M25.561 Pain in right knee; M79.671 Pain in right foot; R00.1 Bradycardia, unspecified; D71 Functional disorders of polymorphonuclear neutrophils; D64.9 Anemia, unspecified; E87.6 Hypokalemia; I48.0 Paroxysmal atrial fibrillation; E11.51 Type 2 diabetes mellitus with diabetic peripheral angiopathy without gangrene; E11.65 Type 2 diabetes mellitus with hyperglycemia; E83.42 Hypomagnesemia; E78.00 Pure hypercholesterolemia, unspecified; F01.50 Vascular dementia, unspecified severity, without behavioral disturbance, psychotic disturbance, mood disturbance, and anxiety; I50.9 Heart failure, unspecified; I99.8 Other disorder of circulatory system; T44.7X5A Adverse effect of beta-adrenoreceptor antagonists, initial encounter; Z74.01 Bed confinement status; Z79.01 Long term (current) use of anticoagulants; Z79.4 Long term (current) use of insulin; Z82.49 Family history of ischemic heart disease and other diseases of the circulatory system; Z83.3 Family history of diabetes mellitus; Z87.891 Personal history of nicotine dependence; Z79.899 Other long term (current) drug therapy; Z80.1 Family history of malignant neoplasm of trachea, bronchus and lung; Y92.89 Other specified places as the place of occurrence of the external cause; Z68.28 Body mass index [BMI] 28.0-28.9, adult
CPT/HCPCS: 71250; 83036; 83605; 83735; 84132; 84145; 84443; 85730; 86480; 86635; 87015; 87040; 87070; 87081; 87086; 87205; 87206; 87389; 87449; 87536; 87556; 87804; 87899; 92610; 93005; 93306; 93925; 93970; 94640; 99291; J0696; J1644; J1815; J2543; J3370; J3475; J3480; J3490; J7030; J7040; J7050; J7060